=== PATIENT | female | born 1985 | race Caucasian/White ===

== ENCOUNTER 2016-06-19 18:26 | Emergency (ER) | payer OTHER | END 2016-06-19 23:11 | disposition home or self-care (01) | LOC: ER1 18:26 | DX: S00.83XA Contusion of other part of head, initial encounter (principal); S50.11XA Contusion of right forearm, initial encounter; Y04.2XXA Assault by strike against or bumped into by another person, initial encounter | CPT/HCPCS: 70450; 70486; 72125; 73090; 99284 ==

== ENCOUNTER → 2021-04-23 | Outpatient (CLI) | payer OTHER | LOC: KOH-I 11:30 | DX: E04.1 Nontoxic single thyroid nodule (principal) | CPT/HCPCS: 76536 ==

== ENCOUNTER 2021-12-15 21:33 | Emergency (ER) | payer OTHER ==
[~2021-12-15 21:33] MED LIST: HYDROCODON-ACE1 EAC4 PO; LEVOTHYROXINE88 MCG PO; PROPRANOLOL HCL10 MG PO; PROTONIX 40 MG40 M1 PO; SERTRALINE HCL100 MG PO; ZYRTEC10 MG PO
== END 2021-12-15 23:44 | disposition left against medical advice (07) ==
LOC: ER1 21:33
PROVIDERS: Emergency Medicine
DX: Z53.21 Procedure and treatment not carried out due to patient leaving prior to being seen by health care provider (principal); Z20.822 Contact with and (suspected) exposure to COVID-19
CPT/HCPCS: 80307; U0002